=== PATIENT | male | born 1985 | race Two or more races ===

== ENCOUNTER 2024-01-07 21:30 | Emergency (ER) | payer OTHER ==
[~2024-01-07] VITALS: Ht 188 cm; Wt 99.8 kg
[2024-01-07] MEDS ORDERED: BUPROPION XL450 MG PO (21:41)
[2024-01-07] MEDS ORDERED: CEFTRIAXONE SODIUM 1,000 MG VIAL IM ONE (22:15)
[2024-01-07] MEDS ORDERED: CEFTRIAXONE SODIUM 2,000 MG VIAL ONE (22:22)
[2024-01-07 23:47] LABS: HEMATOCRIT 42.2 % (39.0-48.0); HEMOGLOBIN 14.2 g/dL (13-16.00); MEAN CELL VOLUME 87.6 fL (80.0-100.00); MEAN CORPUSCULAR HEMOGLOBIN 29.6 pg (27.00-32.0); MEAN CORPUSCULAR HGB CONC 33.8 g/dl (32.0-36.0); PLATELET COUNT 276 K/uL (150-450); RED BLOOD COUNT 4.81 M/uL (4.00-6.00); RED CELL DISTRIBUTION WIDTH 13.8 % (11.5-14.5); URINE APPEARANCE Clear; URINE BILIRRUBIN Negative (NEGATIVE); URINE BLOOD Negative; URINE COLOR Yellow; URINE GLUCOSE Negative (NEGATIVE); URINE KETONE Negative (NEGATIVE); URINE LEUKOCYTE Negative; URINE NITRATE Negative; URINE PROTEIN Negative (NEGATIVE)
[2024-01-07 23:51] LABS: URINE BACTERIA 17.6 uL (0.0-1933); URINE CAST 2.28 uL (0.0-1.40); URINE RBC 3.9 uL (0.0-20.8); URINE WBC 2.9 uL (0.0-23.2)
[2024-01-07 23:59] LABS: URINE EPITHELIAL CELLS 0.1 uL (0.0-38.8)
[2024-01-08 00:05] LABS: ERYTHROCYTE SEDIMENTATION RATE 51 mm/hr
[2024-01-08 00:20] LABS: ALBUMIN 3.9 gm/dL (3.4-5.0); BILIRUBIN TOTAL 1.48 mg/dL (0.3-1.2); CALCIUM 9.5 mg/dL (8.5-10.1); CREATININE SERUM 1.17 mg/dL (0.70-1.30); GFR 69.04; GLOBULINA 4.1 G/DL (2.4-3.5); POTASSIUM 4.12 mEq/L (3.5-5.1)
[2024-01-08 00:22] LABS: C-REACTIVE PROTEIN 7.43 MG/DL (0.00-0.29)
== END 2024-01-08 03:31 | disposition home or self-care (01) ==
LOC: ER 21:31
PROVIDERS: General Practice
DX: L03.818 Cellulitis of other sites (principal)
CPT/HCPCS: 36415; 73700; 96372; 99284; J0696

== ENCOUNTER 2024-02-09 10:16 | Emergency (ER) | payer OTHER ==
[~2024-02-09] VITALS: Ht 185.4 cm; Wt 99.8 kg
[~2024-02-09 10:16] MED LIST: BUPROPION XL450 MG PO
[2024-02-09 10:43] VITALS: BP 122/73; O2SAT 99
[2024-02-09] MEDS ORDERED: SERTRALINE HCL50 MG PO (10:43)
== END 2024-02-09 11:59 | disposition home or self-care (01) ==
LOC: ER 10:18
DX: M79.645 Pain in left finger(s) (principal)

== ENCOUNTER 2024-10-11 21:19 | Emergency (ER) | payer OTHER ==
[~2024-10-11] VITALS: Ht 185.4 cm; Wt 99.8 kg
[~2024-10-11 21:19] MED LIST changes: +SERTRALINE HCL50 MG PO
== END 2024-10-11 23:58 | disposition home or self-care (01) ==
LOC: ER 21:57
DX: G89.11 Acute pain due to trauma (principal); M79.645 Pain in left finger(s)